=== PATIENT | female | born 1955 | race Caucasian/White ===

== ENCOUNTER 2020-04-13 08:11 | Emergency (ER) | payer OTHER ==
[2020-04-13 08:52] LABS: BASOPHILS % (AUTO) 0.5 %; EOSINOPHILS % (AUTO) 0.5 %; HGB - HEMOGLOBIN 12.5 g/dL (12.0-16.0); LYMPHOCYTES # (AUTO) 0.2 10^3/uL (1.5-3.5); LYMPHOCYTES % (AUTO) 3.8 %; MEAN CORPUSCULAR HEMOGLOBIN 31.8 pg (27.0-31.0); MEAN CORPUSCULAR VOLUME 90.8 fL (81.0-99.0); MEAN PLATELET VOLUME 9.9 fL (7.9-10.8); MONOCYTES # (AUTO) 0.3 10^3/uL (0.0-1.0); MONOCYTES % (AUTO) 4.8 %; NEUTROPHILS # (AUTO) 5.8 10^3/uL (1.5-6.6); NEUTROPHILS % (AUTO) 90.2 %; PLT - PLATELET COUNT 231 10^3/uL (130-450); RED BLOOD COUNT 3.93 10^6/uL (4.20-5.40); RED CELL DISTRIBUTION WIDTH 12.1 % (12.0-15.0); WHITE BLOOD COUNT 6.4 x10^3/uL (4.8-10.8)
--- NOTE | 2020-04-13 09:00 | ED Physician Documentation ---
PD HPI ABD PAIN - Stated complaint Stated Complaint: LT FLANK/ABD PX - Chief complaint Chief Complaint: Abd Pain - History obtained from History obtained from: Patient - History of Present Illness Timing - onset: How many hours ago (4), Today Timing - duration: Hours (4) Timing - details: Abrupt onset, Still present Quality: Sharp, Pain Location: LUQ Radiation: Left flank Improved by: No: Eating, Position Worsened by: No: Eating, Moving, Breathing, Palpation Associated symptoms: Nausea, Vomiting. No: Fever, Diarrhea, Constipation, Dysuria Similar symptoms before: Has not had sx before (No prior similar episodes but she does know of an incidental stone in the left kidney found on prior CT scan.) Recently seen: Not recently seen Review of Systems Constitutional: denies: Fever, Chills Nose: denies: Rhinorrhea / runny nose, Congestion Throat: denies: Sore throat Cardiac: denies: Chest pain / pressure, Palpitations Respiratory: denies: Cough GI: reports: Abdominal Pain (some last evening, but markedly onset this AM.), Nausea, Vomiting. denies: Constipation, Diarrhea : denies: Dysuria, Hematuria Skin: denies: Rash, Lesions Neurologic: denies: Generalized weakness, Focal weakness, Numbness, Near syncope, Altered mental status Immunocompromised: denies: Immunocompromised PD PAST MEDICAL HISTORY - Past Medical History Cardiovascular: None Respiratory: None GI: None : None - Allergies Allergies/Adverse Reactions: Allergies Allergy/AdvReac Type Severity Reaction Status Date / Time metoclopramide [From Reglan] Allergy Unknown Verified 04/13/20 08:23 simvastatin [From Zocor] Allergy Nausea Verified 04/13/20 08:23 erythromycin base AdvReac Nausea Verified 04/13/20 08:23 [From Erythrocin] PD ED PE NORMAL - Vitals Vital signs reviewed: Yes - General General: Alert and oriented X 3, Well developed/nourished, Other (She appears markedly uncomfortable and is pacing in the room) - HEENT HEENT: Pharynx benign - Neck Neck: Supple, no meningeal sign, No adenopathy - Cardiac Cardiac: RRR, No murmur - Respiratory Respiratory: Clear bilaterally - Abdomen Abdomen: Normal bowel sounds, Soft, Non tender, Non distended - Female Female : Deferred - Rectal Rectal: Deferred - Back Back: No spinal TTP, Other (Significant left CVA tenderness to percussion) - Derm Derm: Normal color, Warm and dry, No rash - Extremities Extremities: No edema, No calf tenderness / cord - Neuro Neuro: Alert and oriented X 3, No motor deficit, Normal speech Eye Opening: Spontaneous Motor: Obeys Commands Verbal: Oriented GCS Score: 15 Results - Vitals Vitals: Vital Signs - 24 hr 04/13/20 04/13/20 04/13/20 08:19 08:48 10:33 Temperature 36.7 C 37.1 C 36.9 C Heart Rate 82 77 94 Respiratory 17 16 18 Rate Blood Pressure 156/94 H 153/95 H 149/85 H O2 Saturation 100 98 96 04/13/20 12:00 Temperature 36.8 C Heart Rate 88 Respiratory 16 Rate Blood Pressure 143/89 H O2 Saturation 99 Oxygen O2 Source Room air - Labs Labs: Laboratory Tests 04/13/20 04/13/20 04/13/20 08:40 08:40 11:30 WBC 6.4 RBC 3.93 L Hgb 12.5 Hct 35.7 L MCV 90.8 MCH 31.8 H MCHC 35.0 RDW 12.1 Plt Count 231 MPV 9.9 Neut # (Auto) 5.8 Lymph # (Auto) 0.2 L [place] # (Auto) 0.3 Eos # (Auto) 0.0 Baso # (Auto) 0.0 Absolute Nucleated RBC 0.00 Nucleated RBC % 0.0 Sodium 136 Potassium 3.9 Chloride 99 L Carbon Dioxide 25 Anion Gap 12.0 BUN 20 Creatinine 0.8 Estimated GFR (MDRD) 72 L Glucose 163 H Calcium 9.2 Total Bilirubin 0.7 AST 25 ALT 17 Alkaline Phosphatase 51 Total Protein 7.4 Albumin 4.6 Globulin 2.8 Albumin/Globulin Ratio 1.6 Lipase 23 Urine Color YELLOW Urine Clarity CLEAR Urine pH 6.5 Ur Specific [place] 1.020 Urine Protein NEGATIVE Urine Glucose (UA) NEGATIVE Urine Ketones TRACE Urine Occult Blood TRACE-INTA Urine Nitrite NEGATIVE Urine Bilirubin NEGATIVE Urine Urobilinogen 0.2 (NORMAL) Ur Leukocyte Esterase NEGATIVE Ur Microscopic Review NOT INDICATED Urine Culture Comments NOT INDICATED - Rads (name of study) KUB CT Radiology: Prelim report reviewed (10 mm stone at the left UPJ with moderate hydronephrosis. No other acute abnormalities.), See rad report PD MEDICAL DECISION MAKING - ED course Complexity details: reviewed results, re-evaluated patient (The patient is improved with IV fluids, Zofran, Toradol, lidocaine. She states she is sensitive to narcotics and gets nauseous easily so we did give Zofran and Benadryl. With the persistent pain then, she was given fentanyl doses which improved on her pain but would be recurrently back again. ), considered differential, d/w patient, d/w it systems analyst consultant (Talked with Dr. Bennett on for urology at [facility] who defers to the hospitalist but states she would intervene on the patient with a stent due to the intractable pain.) ED course: After repeating doses several times of pain medications with transient improvement, it became clear that this would be intractable and in conjunction with the size of the stone and the hydronephrosis, it be unlikely to improve with this medication. I talked with urology then with the idea of intervening and they were in concordance. Departure - Departure Disposition: 02 Transfer Acute Care Hosp Clinical Impression: Left ureteral stone, Intractable pain Condition: Stable
[2020-04-13 09:02] LABS: ALBUMIN 4.6 g/dL (3.2-5.5); ALBUMIN/GLOBULIN RATIO 1.6 (1.0-2.2); BILIRUBIN,TOTAL 0.7 mg/dL (0.2-1.0); CALCIUM 9.2 mg/dL (8.5-10.3); CREATININE 0.8 mg/dL (0.4-1.0); TOTAL PROTEIN 7.4 g/dL (6.7-8.2)
[2020-04-13] MEDS ORDERED: SODIUM CHLORIDE 0.9% 1,000 ML IV STA (09:14)
[2020-04-13] MEDS ORDERED: KETOROLAC 30 MG/ML VIAL IVP STA (09:14)
[2020-04-13] MEDS ORDERED: diphenhydrAMINE INJ 50 MG/ML VIAL IVP STA ×2 (09:14→12:53)
[2020-04-13] MEDS ORDERED: LIDOCAINE-MPF 2% 5 ML in SODIUM CHLORIDE 0.9% 50 ML IV STA (09:14)
[2020-04-13] MEDS ORDERED: ONDANSETRON 4 MG/2 ML VIAL IVP STA ×2 (09:14→12:53)
--- NOTE | 2020-04-13 10:02 | CT Report ---
PROCEDURE: Abdomen/Pelvis WO INDICATIONS: left flank to abd pain TECHNIQUE: Noncontrast 5 mm thick sections acquired from the diaphragms to the symphysis. 5 mm coronal and sagi ttal reformats were then performed. For radiation dose reduction, the following was used: automated exposure control, adjustment of mA and/or kV according to patient size. COMPARISON: None. FINDINGS: Image quality: Excellent. ABDOMEN: Lung bases: There is mild linear scarring in the left lower lobe. Heart size is normal. There is a sm all hiatal hernia. Solid organs: 2 hepatic cysts are demonstrated. Gallbladder is distended without calcified gallstone s, wall thickening, or pericholecystic fat stranding. Biliary system is non dilated. The spleen is n ormal in size. Pancreas enhances normally without peripancreatic fat stranding or fluid collections. No adrenal nodules. There is an obstructing stone at the left ureteropelvic junction measuring up to 1 cm. This demonstra lonnie attenuation values of approximately 7973-6321 Hounsfield units. There is associated moderate left hydronephrosis with extensive perinephric fat stranding or fluid. No additional renal stones identif ied. Right kidney demonstrates no hydronephrosis. The right ureter is nondistended. A right renal cor tical cyst is noted. Peritoneum and bowel: Unenhanced bowel loops demonstrate normal wall thickness and caliber. The appe ndix is normal in appearance. No free fluid or air. Nodes and vessels: No retroperitoneal or mesenteric adenopathy by size criteria. Aorta and inferior vena cava are normal in caliber. Miscellaneous: No ventral hernias. PELVIS: Genitourinary: Bladder wall thickness is normal. Miscellaneous: No inguinal hernias or adenopathy. Bones: No suspicious bony lesions. No vertebral body compression fractures. IMPRESSION: 1. Obstructing urinary stone at the left UPJ with moderate left hydronephrosis. Reviewed by: Rafat Stallworth MD on 04/13/2020 10:01 AM PDT Approved by: Rafat Stallworth MD on 04/13/2020 10:01 AM PDT Station ID: [id number]
[2020-04-13] MEDS ORDERED: fentaNYL 100 MCG/2 ML VIAL IVP STA ×3 (10:10→12:53)
[2020-04-13 11:58] LABS: BILIRUBIN,URINE NEGATIVE (NEGATIVE); GLUCOSE, URINE (UA) NEGATIVE (NEGATIVE); KETONES,URINE (UA) TRACE mg/dL (NEGATIVE); LEUKOCYTE ESTERASE, URINE NEGATIVE (NEGATIVE); NITRITE,URINE NEGATIVE (NEGATIVE); OCCULT BLOOD,URINE TRACE-INTA (NEGATIVE); PH,URINE 6.5 PH (5.0-7.5); PROTEIN,URINE NEGATIVE (NEGATIVE); UROBILINOGEN,URINE 0.2 (NORMAL) E.U./dL (NORMAL)
[2020-04-13 11:59] LABS: CLARITY,URINE CLEAR (CLEAR)
[2020-04-13 14:03] VITALS: BP 143/83
== END 2020-04-13 14:13 | disposition short-term general hospital (02) ==
LOC: ED 08:11
DX: N13.2 Hydronephrosis with renal and ureteral calculous obstruction (principal)
CPT/HCPCS: 36415; 74176; 80053; 81003; 83690; 85025; 96365; 96375; 96376; 99284; 99285; J1200; J7040; 81001; 87086

== ENCOUNTER 2020-04-13 14:08 | Outpatient (CLI) | payer OTHER | END 2020-04-13 14:09 | disposition short-term general hospital (02) | LOC: EMS 14:08 | PROVIDERS: ATTEND Surgery | DX: N20.1 Calculus of ureter (principal) | CPT/HCPCS: A0425; A0426 ==

== ENCOUNTER 2021-01-01 09:59 | Day surgery (SDC) | payer OTHER ==
[2021-01-01] MEDS ORDERED: LACTATED RINGERS 1,000 ML IV ONE ×2 (10:36→11:53)
[2021-01-01] MEDS ORDERED: fentaNYL 250 MCG/5 ML VIAL ONE (11:15)
[2021-01-01] MEDS ORDERED: MIDAZOLAM 2 MG/2 ML VIAL ONE ×3 (11:15→11:30)
[2021-01-01] MEDS ORDERED: ONDANSETRON 4 MG/2 ML VIAL ONE (11:16)
[2021-01-01 12:14] VITALS: BP 135/79
== END 2021-01-01 10:00 | disposition home or self-care (01) ==
LOC: SDS 09:59
PROVIDERS: ATTEND Surgery
DX: Z12.11 Encounter for screening for malignant neoplasm of colon (principal); K64.8 Other hemorrhoids; K64.4 Residual hemorrhoidal skin tags
CPT/HCPCS: 45378; J3010; J7120